=== PATIENT | female | born 1980 | race Caucasian/White ===

== ENCOUNTER 2023-06-29 16:29 | Emergency (ER) | payer OTHER, BC, MEDICAID, SELFPAY ==
[2023-06-29 16:50] VITALS: PULSE 120; RESP 16; TEMP 36.8; O2SAT 98; BMI 36.5
--- NOTE | 2023-06-29 17:32 | W.ED.ANIMALB ---
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 Patient reports that she had been around the animal before and had never been aggressive but today it became aggressive and attacked her. Patient appears nontoxic. Patient reported some difficulty getting bleeding to stop at first but has since stopped. Patient cleaned the wound prior to arrival. Patient appears nontoxic. Patient appears in no acute distress. Patient reports her last tetanus shot was in 2013. Patient reports that she has had problems with codeine and Augmentin causes nausea and vomiting. Patient reports that the home arts and humanities council director reported that the dog's vaccinations were up-to-date. Review of Systems General: Reports: 10 or more systems reviewed and unremarkable except in HPI and below Skin/Breast: Reports: new lesions Physical Exam Const: COMMON NORMALS: alert HENMT: COMMON NORMALS: normocephalic HEAD & SCALP: normocephalic Neck/C-Spine: COMMON NORMALS: full ROM Resp: COMMON NORMALS: normal respiratory effort and clear to auscultation bilaterally AUSCULTATION: clear to auscultation bilaterally Cardio: COMMON NORMALS: regular rate RATE: regular rate GI: COMMON NORMALS: Soft to palpation PALPATION: Yes Soft to palpation Extremity: COMMON NORMALS: full ROM RIGHT LOWER EXTREMITY: Yes upper leg (Puncture wound posterior thigh, 2 superficial lacerations) Right upper leg: Yes inspection Neuro: SENSORIUM/ORIENTATION: Yes alert Skin: TRAUMA: laceration (Right posterior thigh) and puncture (Right posterior thigh) Course Vital Signs: Vital signs: Vital Signs Temperature 98.2 F 06/29/23 16:50 Pulse Rate 120 H 06/29/23 16:50 Respiratory Rate 16 06/29/23 16:50 Pulse Oximetry 98 06/29/23 16:50 Oxygen Delivery Me thod Room Air 06/29/23 16:50 MDM - Animal Bite Medical Decision Making 42-year-old female comes in today with injuries to the right lower extremity on the posterior thigh. On exam patient has 1 puncture wound and 2 superficial lacerations. Patient has some mild ecchymosis along the wounds. Palpation of the wounds shows no foreign body or fractures. Differential diagnosis includes but not limited to animal bite, need for prophylaxis antibiotics, need for prophylaxis tetanus vaccination, puncture wound, laceration. Reviewed exam with patient recommended no use of glue to the wound as this may increase risk of infection, recommend leaving wound open due to the risk of infection with regards to the superficial nature of the laceration. Patient be placed on antibiotics was given 1 g of Rocephin in the emergency department and updated her tetanus. Patient be kept on doxycycline, bacitracin, and some hydrocodone for pain. Patient reported understanding of care plan and need for follow-up or return to the ER. Patient was stable and discharged to home. Discharge Plan Discharge Patient Disposition: Home Clinical Impression: Dog bite Qualifiers: Encounter type: initial encounter Qualified Code(s): W54.0XXA - Bitten by dog, initial encounter Condition: Stable Prescriptions: New doxycycline monohydrate 100 mg capsule 100 mg PO BID 7 Days Qty: 14 0RF bacitracin 500 unit/gram ointment 1 applic topical BID Qty: 28 0RF hydrocodone-acetaminophen 5-325 mg tablet 1 tab PO Q8H PRN (Reason: pain (scale score 7-10)) Qty: 7 0RF Discharge Orders: Discharge ED (Routine); Ordered 06/29/23 Ordered By: Tyson Goldsmith Discharge Diet: Usual diet Discharge Activity: Increase activity as tolerated Patient Instructions: Animal Bite (ED), Opioid Safety Activity Restrictions/Additional Instructions: Clean wound twice a day with mild soap and water. Use antibiotic ointment bacitracin, to the wound and cover with a dry dressing. Take oral antibiotic doxycycline 100 mg twice a day for 7 days. Follow-up with primary care in 1 week for recheck. Return to ED for new concerns. Coding Level of Care Code ED Vehicle Fuel Systems Converter for Aylin Winters
[2023-06-29] MEDS: HYDROcodone-acetaminophen 5-325 mg Tablet 1 TAB PO (17:52)
[2023-06-29] MEDS: cefTRIAXone 1,000 MG in water for injection-sterile 2.1 ML 1 MG IM (17:53)
[2023-06-29] MEDS: tetanus-dipt-pertussis 0.5 mL SDV IM (17:53)
== END 2023-06-29 18:06 | disposition home or self-care (01) ==
PROVIDERS: Emergency Provider Nurse Practitioner Family
DX: S71.151A Open bite, right thigh, initial encounter (principal); W54.0XXA Bitten by dog, initial encounter; Y99.0 Civilian activity done for income or pay; Z23 Encounter for immunization
CPT/HCPCS: 90471; 90715; 96372; 99284; J0696

== ENCOUNTER 2023-07-07 16:37 | Emergency (ER) | payer OTHER, SELFPAY ==
[2023-07-07 16:44] VITALS: BP 140/103; PULSE 123; RESP 22; TEMP 37.2; O2SAT 97; BMI 36.5
--- NOTE | 2023-07-07 16:56 | W.ED.ANIMALB ---
HPI - Animal Bite General: Chief Complaint: Animal Bite Stated Complaint: dog bite, right leg Time Seen by Provider: 07/07/23 16:52 Source: patient Mode of arrival: ambulatory Limitations: no limitations History of Present Illness: 42-year-old female was bit by a dog roughly a week ago she was seen here mid to right lower leg she did not have the rabies vaccine at that time as she thought that [facility] concrete batching plant [facility] but has not. States she is also been having some slight increased pain she has not any pain medications at home no fever no drainage Associated symptoms: Deny chills, fever(s) or headache(s) Review of Systems Const: Denies: fever(s), chills, body aches or change in appetite ENMT: Denies: throat pain or dental pain Card: Denies: chest pain GI: Denies: abdominal pain, nausea, vomiting or diarrhea Musc: Reports: extremity pain; Denies: neck pain Skin/Breast: Denies: rash Neuro: Denies: headache(s) Physical Exam Const: COMMON NORMALS: no acute distress and patient oriented x3 HENMT: COMMON NORMALS: atraumatic HEAD & SCALP: atraumatic Eye: COMMON NORMALS: conjunctivae normal CONJUNCTIVA: Yes conjunctivae normal Chest: COMMONS NORMALS: normal inspection of the chest Resp: COMMON NORMALS: normal respiratory effort Extremity: NARRATIVE EXTREMITY EXAM: Puncture wounds to right posterior thigh no erythema no drainage well-appearing Neuro: COMMON NORMALS: patient oriented x3 Psych: COMMON NORMALS: mental status grossly normal Skin: COMMON NORMALS: no rashes or lesions noted GENERAL SKIN EXAM: no rashes or lesions noted Course Vital Signs: Vital signs: Vital Signs Temperature 98.9 F 07/07/23 16:44 Pulse Rate 123 H 07/07/23 16:44 Respiratory Rate 22 H 07/07/23 16:44 Blood Pressure 140/103 07/07/23 16:44 Pulse Oximetry 97 07/07/23 16:44 Oxygen Delivery Me thod Room Air 07/07/23 16:44 MDM - Animal Bite Medical Decision Making Patient presents with a dog bite a week ago wound is healing well no signs of infection she has not been able to get the rabies documentation from the dog concrete batching plant operator so we will start the rabies vaccine and immunoglobulin. We will place patient on some pain meds as well she is having some pain she is to return in 3 days for for the rabies protocol Medical Records I reviewed the patient's medical records. Discharge Plan Discharge Patient Disposition: Home Clinical Impression: Dog bite Qualifiers: Encounter type: subsequent encounter Qualified Code(s): W54.0XXD - Bitten by dog, subsequent encounter Condition: Stable Prescriptions: New hydrocodone-acetaminophen 5-325 mg tablet 1 tab PO Q6H PRN (Reason: pain) Qty: 14 0RF No Action bacitracin 500 unit/gram ointment 1 applic topical BID Qty: 28 0RF hydrocodone-acetaminophen 5-325 mg tablet 1 tab PO Q8H PRN (Reason: pain (scale score 7-10)) Qty: 7 0RF Discharge Orders: Discharge ED (Routine); Ordered 07/07/23 Ordered By: Renetta Wallace Discharge Diet: Advance as tolerated Discharge Activity: Resume usual activity Patient Instructions: Animal Bite (ED), Opioid Safety Coding Level of Care Code ED Merchandising Team Lead for Aylin Winters
[2023-07-07] MEDS: rabies vaccine 2.5 unit SDV IM (17:35)
[2023-07-07] MEDS: rabies IG 300 unit/mL SDV 1 mL 676 UNIT XX (17:37)
== END 2023-07-07 17:45 | disposition home or self-care (01) ==
PROVIDERS: Emergency Provider Emergency Medicine
DX: S71.151A Open bite, right thigh, initial encounter (principal); W54.0XXA Bitten by dog, initial encounter; Z29.14 Encounter for prophylactic rabies immune globulin; Z20.3 Contact with and (suspected) exposure to rabies; Z23 Encounter for immunization
CPT/HCPCS: 90375; 90471; 90675; 96372; 99284

== ENCOUNTER 2023-07-10 17:44 | Emergency (ER) | payer OTHER, SELFPAY ==
[2023-07-10 17:54] VITALS: BP 149/108; PULSE 96; RESP 16; TEMP 36.6; O2SAT 98; BMI 36.5
--- NOTE | 2023-07-10 19:18 | ED_ITS ---
HPI - General Adult General: Chief complaint: General Medical Stated complaint: 2nd rabies shot Time Seen by Provider: 07/10/23 19:17 History of Present Illness: 42-year-old female comes in today for second of her rabies vaccine injections. Patient had a dog bite and was started on the rabies postexposure prophylaxis treatment. Patient appears nontoxic. Patient appears in no acute distress. Patient denies any complaints. Review of Systems Skin/Breast: Reports: new lesions (Healing wounds) Physical Exam Const: COMMON NORMALS: alert HENMT: COMMON NORMALS: normocephalic HEAD & SCALP: normocephalic Neck/C-Spine: COMMON NORMALS: full ROM Resp: COMMON NORMALS: normal respiratory effort Cardio: COMMON NORMALS: regular rate RATE: regular rate Back/Pelvis: COMMON NORMALS: thoracic and lumbar spine normal to inspection Extremity: COMMON NORMALS: normal to inspection Neuro: SENSORIUM/ORIENTATION: Yes alert Skin: COMMON NORMALS: turgor normal GENERAL SKIN EXAM: turgor normal Course Vital Signs: Vital signs: Vital Signs Temperature 97.9 F 07/10/23 17:54 Pulse Rate 96 07/10/23 17:54 Respiratory Rate 16 07/10/23 17:54 Blood Pressure 149/108 07/10/23 17:54 Pulse Oximetry 98 07/10/23 17:54 MDM - General Adult Medical Decision Making Patient comes in for second of her rabies vaccine injections. Patient denies any complaints or problems. Injection was administered with instructions for monitoring and treatment. Patient reports understanding of care plan and need for follow-up or return to the ER. Discharge Plan Discharge Patient Disposition: Home Clinical Impression: Encounter for repeat administration of rabies vaccination, Dog bite Condition: Stable Prescriptions: No Action bacitracin 500 unit/gram ointment 1 applic topical BID Qty: 28 0RF hydrocodone-acetaminophen 5-325 mg tablet 1 tab PO Q8H PRN (Reason: pain (scale score 7-10)) Qty: 7 0RF hydrocodone-acetaminophen 5-325 mg tablet 1 tab PO Q6H PRN (Reason: pain) Qty: 14 0RF Discharge Orders: Discharge ED (Routine); Ordered 07/10/23 Ordered By: Tyson Goldsmith Discharge Diet: Usual diet Discharge Activity: Resume usual activity Activity Restrictions/Additional Instructions: Follow-up with primary care as needed. Return to ER or urgent care setting in 1 week for third rabies vaccine. Coding Level of Care Code ED Roving Technician for Aylin Winters
[2023-07-10] MEDS: rabies vaccine 2.5 unit SDV IM (19:23)
== END 2023-07-10 19:27 | disposition home or self-care (01) ==
PROVIDERS: Emergency Provider Nurse Practitioner Family
DX: Z29.14 Encounter for prophylactic rabies immune globulin (principal); Z20.3 Contact with and (suspected) exposure to rabies; Z23 Encounter for immunization; W54.0XXA Bitten by dog, initial encounter
CPT/HCPCS: 90471; 90675; 99283

== ENCOUNTER 2023-07-21 16:03 | Oncology outpatient (recurring) (ONCR) | payer OTHER, SELFPAY ==
[2023-07-15] MEDS: rabies vaccine 2.5 unit SDV IM (16:27)
[2023-07-21] MEDS: rabies vaccine 2.5 unit SDV IM (16:19)
[2023-07-21 16:25] VITALS: BP 167/109; PULSE 126; RESP 16; TEMP 37.4; O2SAT 96
== END 2023-08-01 23:59 | disposition home or self-care (01) ==
PROVIDERS: Visit Provider Physician Assistant
DX: Z23 Encounter for immunization (principal); Z20.3 Contact with and (suspected) exposure to rabies; T14.8XXA Other injury of unspecified body region, initial encounter; W54.0XXA Bitten by dog, initial encounter
CPT/HCPCS: 90471; 90675

== ENCOUNTER 2023-12-28 07:04 | Emergency (ER) | payer BC, MEDICAID, SELFPAY ==
[2023-12-28 07:05] VITALS: BP 139/92; PULSE 115; TEMP 36.8; O2SAT 92; BMI 36.5
--- NOTE | 2023-12-28 07:16 | W.ED.EXTPRO ---
HPI - Extremity Problem General: Chief complaint: Extremity Problem,Nontraumatic Stated complaint: rt leg pain Time Seen by Provider: 12/28/23 07:16 Source: patient Mode of arrival: EMS History of Present Illness: 43-year-old female presents to the emergency room with complaints of myalgias joint pain. She states her symptoms started about 4 days ago varied from her left arm and leg to her right leg. Over the last 2 days it is more localized to her left leg particularly around the knee. No trauma injury or fall. She was seen on 12/20/2023 for an upper respiratory complaint. At that time she declined respiratory swabs in the clinic and was started on Levaquin. She denies chest pain but she has been somewhat short of breath. Patient is not on any hormone supplements or control. She denies chest pain history of DVT or PE. Patient smokes cigarettes and uses vape. MD Complaint: extremity pain Onset (ago): day(s) Pain Consistency: constant Location: left, right and lower extremity Relieving factors: nothing Exacerbating factors: nothing Associated symptoms: Reports arthralgias, myalgias and short of breath; Deny chest pain, fever(s) or rash Context: recent illness Review of Systems Const: Denies: fever(s) or chills Card: Denies: chest pain Resp: Denies: dyspnea GI: Denies: abdominal pain : Denies: dysuria, urinary frequency or urinary urgency Musc: Denies: neck pain or back pain Skin/Breast: Denies: rash Physical Exam Const: GENERAL APPEARANCE: cooperative ORIENTATION/CONSCIOUSNESS: Yes awake, Yes oriented to person, Yes oriented to place and Yes oriented to time HENMT: COMMON NORMALS: normocephalic, atraumatic and hearing grossly normal bilaterally HEAD & SCALP: normocephalic and atraumatic Resp: COMMON NORMALS: normal respiratory effort, No retractions and No use of accessory muscles AUSCULTATION: wheezes Cardio: COMMON NORMALS: regular rhythm and No murmurs present (Cardio) RATE: tachycardic RHYTHM: regular rhythm GI: COMMON NORMALS: Soft to palpation and No hepatosplenomegaly present AUSCULTATION: Yes normoactive bowel sounds PALPATION: Yes Soft to palpation, No Tenderness to palpation present (GI), No Guarding due to palpation present (GI) and Yes No hepatosplenomegaly present Extremity: COMMON NORMALS: normal to inspection, capillary refill normal, no clubbing, cyanosis or edema, no calf tenderness and no pedal edema OTHER: Examination of the right knee no joint effusion or deformity no laceration. Neuro: SENSORIUM/ORIENTATION: Yes oriented to person, Yes oriented to place and Yes oriented to time Skin: COMMON NORMALS: no rashes or lesions noted GENERAL SKIN EXAM: no rashes or lesions noted Course Vital Signs: Vital signs: Vital Signs Temperature 98.2 F 12/28/23 07:05 Pulse Rate 108 H 12/28/23 09:21 Blood Pressure 139/92 12/28/23 07:19 Pulse Oximetry 90 12/28/23 09:21 Oxygen Delivery Me thod Room Air 12/28/23 09:21 MDM - Extremity (Nontraumatic) Medical Decision Making Patient presents with knee pain sinus tachycardia and borderline oxygen saturations. Sodium just above 90 consistently. Given recent upper respiratory infection concerned about possible DVT/PE. Venous duplex lower extremities negative PE scan negative cardiac enzymes negative EKG shows sinus tachycardia with no acute ST changes x-ray of the right knee shows no acute fractures. CT did show signs of pulmonary hypertension but is otherwise unremarkable for acute pathology. Discharge patient home we will set her up to see pulmonology diclofenac as needed for joint pain. Start on Toprol-XL 12.5 mg once daily. Return if has further problems. Differential Diagnosis Likely deep vein thrombosis of lower extremity Medical Records I reviewed the patient's medical records. Lab Data I reviewed the patient's lab results. 12/28/23 07:50 12/28/23 07:50 Laboratory Results WBC 10.58 10^3/uL (3.29-11.43) 12/28/23 07:50 RBC 4.90 10^6/uL (3.85-5.65) 12/28/23 07:50 Hgb 14.00 g/dL (11.27-16.99) 12/28/23 07:50 Hct 42.6 % (36-47) 12/28/23 07:50 MCV 86.9 fl (85-98) 12/28/23 07:50 MCH 28.6 pg (27-33) 12/28/23 07:50 MCHC 32.9 g/dL (30-55) 12/28/23 07:50 RDW 18.7 % (12.1-15.1) H 12/28/23 07:50 Plt Count 286 10^3/cmm (157-399) 12/28/23 07:50 MPV 8.5 fL (7.4-10.4) 12/28/23 07:50 Neut % (Auto) 48.0 % 12/28/23 07:50 Lymph % (Auto) 40.5 % 12/28/23 07:50 Weston % (Auto) 8.5 % 12/28/23 07:50 Eos % (Auto) 0.7 % 12/28/23 07:50 Baso % (Auto) 0.5 % 12/28/23 07:50 Neut # (Auto) 5.09 10^3/uL (1.8-7.7) 12/28/23 07:50 Lymph # (Auto) 4.3 10^3/uL (0.8-4.8) 12/28/23 07:50 Weston # (Auto) 0.9 10^3/uL (0.2-0.9) 12/28/23 07:50 Eos # (Auto) 0.1 10^3/uL (0.0-0.8) 12/28/23 07:50 Baso # (Auto) 0.1 10^3/uL (0.0-0.1) 12/28/23 07:50 Nucleated RBC % (auto) 0 % 12/28/23 07:50 Nucleated RBCs # 0.0 /100WBC 12/28/23 07:50 Sodium 134 mmol/L (136-145) L 12/28/23 07:50 Potassium 3.6 mmol/L (3.5-5.1) 12/28/23 07:50 Chloride 96 mmol/L (98-107) L 12/28/23 07:50 Carbon Dioxide 23 mmol/L (22-29) 12/28/23 07:50 Anion Gap 18.6 (5-19) 12/28/23 07:50 BUN 6 mg/dL (6-20) 12/28/23 07:50 Creatinine 0.6 mg/dL (0.5-0.9) 12/28/23 07:50 GFR Calculation 108.6 mL/min (90-130) 12/28/23 07:50 Glucose 94 mg/dL (65-115) 12/28/23 07:50 Calculated Osmolality 275 mOsm/kg (285-295) L 12/28/23 07:50 Lactic Acid 2.1 mmol/L (0.5-2.2) 12/28/23 07:50 Calcium 8.3 mg/dL (8.5-10.5) L 12/28/23 07:50 Total Bilirubin 0.5 mg/dL (0.15-1.2) 12/28/23 07:50 AST 80 U/L (0-32) H 12/28/23 07:50 ALT 82 U/L (0-33) H 12/28/23 07:50 Alkaline Phosphatase 159 U/L (35-105) H 12/28/23 07:50 Total Protein 6.4 g/dL (6.6-8.7) L 12/28/23 07:50 Albumin 3.7 g/dL (3.5-5.2) 12/28/23 07:50 Globulin 2.7 g/dL (1.3-4.6) 12/28/23 07:50 All radiology interpretation(s) finalized by discharge Discharge Plan Discharge Patient Disposition: Home Clinical Impression: Acute knee pain, Sinus tachycardia Condition: Stable Prescriptions: New Toprol XL 25 mg tablet extended release 24 hr 12.5 mg PO DAILY Qty: 15 0RF diclofenac sodium 75 mg tablet,delayed release (DR/EC) 75 mg PO Q12H PRN (Reason: pain) Qty: 20 0RF Discontinued ibuprofen 200 mg Tablet 200 mg PO Q6H PRN (Reason: Pain) No Action Tylenol 325 mg Tablet 650 mg PO QID PRN (Reason: Pain) aspirin 325 mg Tablet 325 mg PO Q4H Rx Instructions: while awake Discharge Orders: Discharge ED (Routine); Ordered 12/28/23 Ordered By: Lino Elizabeth Discharge Diet: Usual diet Discharge Activity: Increase activity as tolerated Patient Instructions: Opioid Safety, Pain Management Activity Restrictions/Additional Instructions: Thank you for choosing [facility] for your healthcare needs today. Please realize this is an emergency room and that we are providing you with a medical screening exam and this may not be complete and all inclusive of all the testing and or work up that you may need to determine your ailment or severity of your illness. It is very important that you follow up as instructed or that you return to the Emergency Department should you have concerns or if your condition changes or worsens in any way. You were seen today for complaint of leg pain. Your tachycardic and your oxygen saturation at times was low. X-ray of your right knee did not show any significant abnormality ultrasound of your lower extremities did not show blood clot in CT scan of your chest did not show any clots either. There was some suggestion of pulmonary hypertension. consumer affairs manager will make arrangements for you to follow-up with pulmonology. Recommend you start Toprol-XL 12.5 mg once a day. Stop ibuprofen use diclofenac 1 every 12 hours as needed for knee pain. If your symptoms persist or worsen return Coding Level of Care Code ED Bank Sales And Service Manager for Aylin Winters
[2023-12-28 07:19] VITALS: BP 139/92; PULSE 116; O2SAT 92
--- NOTE | 2023-12-28 07:28 | USCV_ITS ---
Floresita Harrell Age: 43 Gender: F : 1980 Exam Date: 12/28/2023 08:20 Ordering Phys: Lino Elizabeth DO Technologist: [place] [facility] [place]: LE Pain PROCEDURES: The venous duplex Doppler examination of both lower extremities was performed in the standard fashion. The following venous structures were evaluated: common femoral vein, profunda vein, proximal portion of the greater saphenous vein, superficial femoral vein, and the popliteal vein. In addition, the posterior tibial veins were evaluated. FINDINGS: Normal 2-D Doppler and augmentation and compressibility throughout the lower extremity venous structures. Additional imaging through the proximal calf veins also reveals no thrombus. Limited evaluation of the greater saphenous vein is patent with no thrombus. CONCLUSIONS No DVT bilateral lower extremities. Dr. Zeinab Esquivel DO (Electronically Signed) Final Date: 28 December 2023 11:00 S
--- NOTE | 2023-12-28 07:28 | XR_ITS ---
WS: [id number] PORTABLE CHEST HISTORY: dyspnea/cough COMPARISON: None available. Mild pulmonary hyperexpansion. Prior granulomatous disease. No mass or pneumonia. No pleural effusion or pneumothorax. Cardiac size: Normal. Mediastinum/Aorta: Normal mediastinum. No osseous abnormality seen. IMPRESSION: Mild emphysema. Prior granulomatous disease. No pneumonia.
--- NOTE | 2023-12-28 07:28 | XR_ITS ---
WS: [id number] RIGHT KNEE: 3 VIEW(S) TECHNIQUE: AP, oblique(s) and lateral. HISTORY: pain COMPARISON: None available. No fracture or dislocation. No joint space narrowing or osteophytes. No joint effusion. No soft tissue abnormality. IMPRESSION: Normal RIGHT knee.
--- NOTE | 2023-12-28 07:40 | PC.PHAR ---
Pt states has taken Tylenol, Ibuprofen and Aspirin this morning and daily for the last several days.
--- NOTE | 2023-12-28 07:50 | ECG_ITS ---
[facility] Test Date: 2023-12-28 Pat Name: Floresita Harrell Department: Room: Gender: Female Angledozer Operator: : 1980 Requested By: Lino Painting Order Number: [id number] Alok MD: Brice Galeas M.D. Measurements Intervals Sunset Rate: 121 P: 26 ND: 140 QRS: -18 QRSD: 76 T: 30 QT: 316 QTc: 449 Interpretive Statements SINUS TACHYCARDIA LOW QRS VOLTAGE IN PRECORDIAL LEADS [QRS DEFLECTION < 1.0 mV IN CHEST LEADS] POSSIBLE ANTERIOR MYOCARDIAL INFARCTION , PROBABLY OLD [30 ms Q WAVE IN V3/V4, OR R < 0.2 mV IN V4] ABNORMAL RHYTHM ECG No previous ECG available for comparison Electronically Signed On 12-29-2023 0:36:52 CORRESPONDENCE ANALYST by Brice Galeas M.D. [id number]
--- NOTE | 2023-12-28 07:52 | CT_ITS ---
WS: [id number] CT CHEST ANGIOGRAPHY WITH REFORMATS HISTORY: tachycardia/hypoxia TECHNIQUE: Contiguous axial images are obtained through the chest during arterial injection of intrav enous contrast. Images are reconstructed to evaluate the pulmonary arteries. MIP imaging also reviewe d. All CT scans at [facility] use at least one of these dose optimization techniques: automat ed exposure control; mA and/or kV adjustment per patient size (includes targeted exams where dose is matched to clinical indication); or iterative reconstruction. CONTRAST: Omnipaque 350; 190 mL IV. DLP: 906.43 mGy.cm COMPARISON: None available. Adequate opacification of the central pulmonary arteries. There are no central filling defects identi fied. No pulmonary embolism. Beyond the segmental branches the opacification becomes limited. Normal size thoracic aorta. No dissection or aneurysm. There is very minimal plaque within the aorta includi ng the suprarenal aorta. Pulmonary artery is dilated slightly greater than the aorta measuring 3.6 cm . Normal size great vessels. No mediastinal or hilar adenopathy. No pericardial or pleural effusion. Benign granuloma RIGHT middle lobe. No pneumonia. Heart size is normal. There is calcified plaque in the LEFT anterior descending coronary artery. Hepatic steatosis. Visualized liver does appear at least slightly enlarged. No adrenal mass. Prior ch olecystectomy. Nonobstructing calcification superior pole LEFT kidney. IMPRESSION: 1. No pulmonary embolism. 2. No RIGHT heart strain. 3. Mild pulmonary hypertension. 4. Mild atherosclerosis aorta. 5. Additional focal calcifications noted within the LEFT anterior descending coronary artery. 6. Hepatic steatosis and prior cholecystectomy.
[2023-12-28 08:03] LABS: Basophils # 0.1 10^3/uL (0.0-0.1); Basophils % 0.5 %; Eosinophils # 0.1 10^3/uL (0.0-0.8); Eosinophils % 0.7 %; Hematocrit 42.6 % (36-47); Lymphocytes # 4.3 10^3/uL (0.8-4.8); Lymphocytes % 40.5 %; Mean Corpuscular HGB Conc 32.9 g/dL (30-55); Mean Corpuscular Hemoglobin 28.6 pg (27-33); Mean Corpuscular Volume 86.9 fl (85-98); Mean Platelet Volume 8.5 fL (7.4-10.4); Monocytes # 0.9 10^3/uL (0.2-0.9); Monocytes % 8.5 %; Neutrophils # 5.09 10^3/uL (1.8-7.7); Nucleated Red Blood Cells % 0 %; Platelet Count 286 10^3/cmm (157-399); Red Cell Distribution Width 18.7 % (12.1-15.1); White Blood Count 10.58 10^3/uL (3.29-11.43)
[2023-12-28 08:21] LABS: Lactic Sepsis W/Reflex 2.1 mmol/L (0.5-2.2)
[2023-12-28 08:22] LABS: Alanine Aminotransferase 82 U/L (0-33); Albumin Level 3.7 g/dL (3.5-5.2); Alkaline Phosphatase 159 U/L (35-105); Anion Gap 18.6 (5-19); Aspartate Amino Transferase 80 U/L (0-32); Blood Urea Nitrogen 6 mg/dL (6-20); Calcium 8.3 mg/dL (8.5-10.5); Carbon Dioxide 23 mmol/L (22-29); Chloride 96 mmol/L (98-107); Creatinine Clr Calc Pharmacy 154.6713; Globulin 2.7 g/dL (1.3-4.6); Glomerular Filtration Rate 108.6 mL/min (90-130); Glucose 94 mg/dL (65-115); Osmolality Calculated 275 mOsm/kg (285-295); Potassium 3.6 mmol/L (3.5-5.1); Sodium 134 mmol/L (136-145); Total Bilirubin 0.5 mg/dL (0.15-1.2); Total Protein 6.4 g/dL (6.6-8.7)
[2023-12-28] MEDS: ketorolac 30 mg/mL INJ IVP (08:54)
[2023-12-28 09:21] VITALS: PULSE 108; O2SAT 90
[2023-12-28] MEDS: iohexol 350 mg/mL 500 mL Btl (per mL) IV (09:22)
[2023-12-28 09:46] LABS: Reflex Lactate Order REFLEX LACTIC ORDERD
--- NOTE | 2023-12-28 11:14 | DCPLANNER ---
A message was sent to pulmonology on 12/28/[address] [place] [id number] to contact patient for appt.
== END 2023-12-28 10:59 | disposition home or self-care (01) ==
PROVIDERS: Emergency Provider Family Medicine
DX: M25.561 Pain in right knee (principal); R00.0 Tachycardia, unspecified
CPT/HCPCS: 36415; 71045; 71275; 73562; 80053; 83605; 85025; 87040; 93005; 93970; 96374; 99285; J1885; Q9967

== ENCOUNTER → 2024-02-16 10:02 | Outpatient (BNVA) | payer BC, MEDICAID, SELFPAY | PROVIDERS: PCP Family Medicine; Visit Provider Family Medicine | DX: Z13.6 Encounter for screening for cardiovascular disorders (principal); F41.1 Generalized anxiety disorder; I10 Essential (primary) hypertension; Z76.89 Persons encountering health services in other specified circumstances | CPT/HCPCS: 80053; 80061; 84443; 85025 ==

== ENCOUNTER 2024-06-08 13:22 | Outpatient (CLI) | payer BC, MEDICAID, SELFPAY ==
[2024-06-08 13:38] VITALS: PULSE 86; RESP 18; O2SAT 99
[2024-06-08] MEDS: albuterol 2.5 mg/3 mL Neb INHALATION (13:41)
== END 2024-06-08 13:23 | disposition home or self-care (01) ==
PROVIDERS: PCP Family Medicine; Visit Provider Family Medicine
DX: I27.20 Pulmonary hypertension, unspecified (principal)
CPT/HCPCS: 94060; 94726; 94729; J7613

== ENCOUNTER 2024-08-12 08:46 | Outpatient (CLI) | payer BC, SELFPAY ==
--- NOTE | 2024-08-12 09:15 | USCV_ITS ---
Floresita Harrell Age: 43 Gender: F : 1980 Exam Date: 08/12/2024 09:15 Ordering Phys: Bud Roy MD Technologist: CT Exam Location: [facility] [place] Indication: BP: 122 / 80 HR: 57 Rhythm: Sinus Technical Quality: Adequate MEASUREMENTS (Male / Female) Normal Values 2D ECHO LVOT Diameter 2.1 cm LV Ejection Fraction MOD 4C 70.5 % LV Ejection Fraction MOD 2C 73.9 % LV Ejection Fraction 2C AL 73.6 % LA Diameter 3.1 cm RA Systolic Volume 4C AL 28.7 ml RA Systolic Volume 4C MOD 28.1 ml LA Sys Volume AL 64.1 cm cubed LA Sys Volume Index AL 29.2 cm cubed/m squared Aorta at Sinotubular Diameter 2.5 cm IVC Diameter 1.7 cm M-MODE LA Ao Ratio MM 1.1 AV Cusp Separation MM 2.0 cm DOPPLER AV Peak Velocity 148.0 cm/s LVOT Peak Velocity 128.0 cm/s AV Area Cont Eq vti 3.0 cm squared AV Area Cont Eq pk 2.9 cm squared MV Peak Velocity 82.0 cm/s MV Area PHT 3.5 cm squared Mitral E to A Ratio 1.1 TV Peak Velocity 242.0 cm/s TR Peak Velocity 270.0 cm/s TR Peak Gradient 29.2 mmHg TV Peak E Velocity 71.0 cm/s Right Atrial Pressure 3.0 mmHg Pulmonary Artery Systolic Pressu 32.2 mmHg PV Peak Velocity 100.5 cm/s FINDINGS Left Ventricle Normal left ventricular size, systolic function and wall thickness, with no regional wall motion abnormalities. Left ventricular ejection fraction is estimated at 60 %. Grade I/IV diastolic dysfunction (abnormal relaxation filling pattern), normal to mildly elevated filling pressures. Right Ventricle The right ventricle is normal in size and function. Right Atrium The right atrium is normal in size. Left Atrium The left atrium is normal in size. Mitral Valve Structurally normal mitral valve without significant stenosis or prolapse. There is no mitral regurgitation. Aortic Valve Moderate aortic valve calcification. No aortic valve stenosis. Aortic valve sclerosis. Moderate aortic valve regurgitation. Tricuspid Valve Structurally normal tricuspid valve without significant stenosis or regurgitation. Pulmonary artery systolic pressure is normal. Pulmonic Valve Trace pulmonary valve regurgitation. Pericardium Normal pericardium without effusion. Aorta Normal ascending aorta dimension. IVC The inferior vena cava appears normal. CONCLUSIONS Normal left ventricular size, systolic function and wall thickness, with no regional wall motion abnormalities. Left ventricular ejection fraction is estimated at 60 %. Grade I/IV diastolic dysfunction (abnormal relaxation filling pattern), normal to mildly elevated filling pressures. Moderate aortic valve calcification. No aortic valve stenosis. Aortic valve sclerosis. Moderate aortic valve regurgitation. There is no pericardial effusion. Pulmonary artery systolic pressure is within normal limits. Right atrial pressure is around 5 mm of mercury. Deirdre Carey MD (Electronically Signed) Final Date: 15 August 2024 13:33 S
== END 2024-08-12 08:47 | disposition home or self-care (01) ==
PROVIDERS: PCP Family Medicine; Visit Provider Family Medicine
DX: I27.20 Pulmonary hypertension, unspecified (principal); I50.30 Unspecified diastolic (congestive) heart failure; I70.0 Atherosclerosis of aorta; I35.1 Nonrheumatic aortic (valve) insufficiency
CPT/HCPCS: 93306

== ENCOUNTER → 2024-08-23 14:12 | Outpatient (BNVA) | payer OTHER, SELFPAY | PROVIDERS: PCP Family Medicine; Visit Provider Psychiatry & Neurology Psychiatry | DX: F10.20 Alcohol dependence, uncomplicated (principal); F41.1 Generalized anxiety disorder | CPT/HCPCS: 80061; 83036 ==